=== PATIENT | male | born 1970 | race Caucasian/White ===

== ENCOUNTER → 2016-12-01 | Outpatient (CLI) | payer OTHER, MEDICAID ==
[~2016-12-01] MED LIST: ASPI81TA85 AD; COMBAER6 INH; DICY10SO PO; FAMO1TAB25 PO; LORA2CON5 PO; MAG400TA PO; MAGN400C2 PO; METH-107 PO; MIRT30TA2 PO; OMEP40CA2 PO; PRAV40TA2 PO; PROP60TA14 PO; RISP2TAB30 PO; VITA100037 PO; ZONI100C2 PO
--- NOTE | 2016-12-02 02:50 | REP ---
Clinical: Trauma. Technique: Frontal view of the chest with multiple views of the right hemithorax. Findings: Frontal view of the chest demonstrates no acute cardiopulmonary process. Multiple views of the right hemithorax demonstrates no obvious acute rib fracture or pathology. Impression: Normal right rib series Signed by Adair Lopez MD 12/02/2016 02:41 A
== END ==
LOC: M WUC 16:42
PROVIDERS: ATTEND Physician Assistant Medical
DX: R07.81 Pleurodynia (principal); W19.XXXA Unspecified fall, initial encounter; X58.XXXA Exposure to other specified factors, initial encounter; Y93.9 Activity, unspecified; Y92.9 Unspecified place or not applicable; Y99.8 Other external cause status

== ENCOUNTER → 2017-01-08 | Outpatient (CLI) | payer OTHER ==
--- NOTE | 2017-01-08 14:45 | REP ---
MR BRAIN WITHOUT AND WITH CONTRAST: HISTORY: Altered sense of smell. CONTRAST: ProHance 14 mL. COMPARISON: 12/07/2013 A small area of increased signal intensity on T2-weighted images is present in the left cerebellum. This represents an old lacunar infarction. There is no intraparenchymal hemorrhage, acute infarct, mass, or midline shift. There is no abnormal enhancement. The ventricular system is normal in appearance. There is no extracerebral collection. Mucosal thickening is present in the ethmoid and maxillary sinuses. IMPRESSION: Old left cerebellar lacunar infarction. Signed by Lopez Cavazos MD 01/08/2017 02:49 P
== END ==
LOC: M RAD 12:16
PROVIDERS: ATTEND Physician Assistant Medical
DX: R43.9 Unspecified disturbances of smell and taste (principal); I63.9 Cerebral infarction, unspecified
CPT/HCPCS: 70553; A9576

== ENCOUNTER → 2017-01-26 | Outpatient (REF) ==
--- NOTE | 2017-01-26 11:50 | REP ---
Clinical: Pain and disability. Technique: AP, lateral, coned-down views of the lumbosacral spine. Findings: Alignment and lordosis maintained. No acute fracture / compression injury or subluxation. Advanced degenerative disc osteophyte complex at the L5-S1 level includes endplate sclerosis, anterior osteophytes, and disc space narrowing. Moderate degenerative disc disease at the L3-4 and L4-5 levels includes endplate sclerosis with early anterior spurring and minimal disc space narrowing. Impression: Multilevel degenerative changes most pronounced at the L5-S1 level. Signed by Adair Lopez MD 01/26/2017 11:42 A
== END ==
LOC: M SMT 10:45
PROVIDERS: ATTEND Internal Medicine
DX: M51.36 Other intervertebral disc degeneration, lumbar region (principal)

== ENCOUNTER → 2017-01-29 | Outpatient (CLI) | payer OTHER ==
--- NOTE | 2017-01-29 11:38 | REP ---
ULTRASOUND, LEFT BREAST: The patient reports a history of palpable abnormality in the left retroareolar region. There is hypoechoic tissue in this region, which is ill-defined measuring 2.7 x 0.9 x 2.0 cm. This is asymmetric when compared to the right retroareolar region. Findings are most consistent with asymmetric gynecomastia. Clinical correlation and followup is recommended. These findings should not deter biopsy if there is a clinically suspicious palpable mass present. Signed by Dequan Dia MD 01/29/2017 01:26 P
== END ==
LOC: M RAD 10:24
PROVIDERS: ATTEND Physician Assistant Medical
DX: R92.8 Other abnormal and inconclusive findings on diagnostic imaging of breast (principal)

== ENCOUNTER → 2017-03-23 | Outpatient (REF) | payer OTHER ==
[2017-03-23 16:23] LABS: ALBUMIN 3.7 GM/DL (3.2-5.2); ALBUMIN/GLOBULIN RATIO 1.23 (1.00-1.93); ALKALINE PHOSPHATASE 75 U/L (45-117); ALT/SGPT 16 U/L (12-78); ANION GAP 7 MEQ/L (8-16); AST/SGOT 8 U/L (15-37); BILIRUBIN,TOTAL 0.4 MG/DL (0.2-1.0); BLOOD UREA NITROGEN 7 MG/DL (7-18); CALCIUM LEVEL 8.4 MG/DL (8.5-10.1); CARBON DIOXIDE LEVEL 28 MEQ/L (21-32); CHLORIDE LEVEL 102 MEQ/L (98-107); CHOLESTEROL LEVEL 221 MG/DL (<200); CREATININE FOR GFR 1.15 MG/DL (0.70-1.30); GLOMERULAR FILTRATION RATE > 60.0 (>60); GLUCOSE, FASTING 88 MG/DL (70-105); MAGNESIUM LEVEL 2.3 MG/DL (1.8-2.4); POTASSIUM SERUM 4.4 MEQ/L (3.5-5.1); SODIUM LEVEL 137 MEQ/L (136-145); TOTAL PROTEIN 6.7 GM/DL (6.4-8.2); TRIGLYCERIDES LEVEL 171 MG/DL (<150)
[2017-03-23 16:26] LABS: BASO # 0.1 K/mm3 (0.0-0.2); BASO % 1.2 % (0.0-1.0); EOS # 0.3 K/mm3 (0.0-0.50); EOS % 3.1 % (0.0-3.0); LARGE UNSTAINED CELL # 0.1 K/mm3 (0.0-0.4); LARGE UNSTAINED CELL % 1.5 % (0.0-4.0); LYMPH # 2.8 K/mm3 (1.5-4.5); LYMPH % 32.9 % (24.0-44.0); MEAN CORPUSCULAR HEMOGLOBIN 30.4 pg (27.0-33.0); MEAN CORPUSCULAR HGB CONC 32.7 g/dl (32.0-36.5); MEAN CORPUSCULAR VOLUME 92.8 fl (80.0-96.0); MONO # 0.5 K/mm3 (0.0-0.8); MONO % 5.8 % (0.0-5.0); NEUTROPHILS # 4.6 K/mm3 (1.8-7.7); NEUTROPHILS % 55.6 % (36.0-66.0); PLATELET COUNT, AUTOMATED 217 k/mm3 (150-450); RED CELL DISTRIBUTION WIDTH 13.4 % (11.5-14.5); WHITE BLOOD COUNT 8.3 K/mm3 (4.0-10.0)
== END ==
LOC: M SFHCPLAZ 12:52
PROVIDERS: ATTEND Physician Assistant Medical
DX: K21.9 Gastro-esophageal reflux disease without esophagitis (principal); E78.5 Hyperlipidemia, unspecified; F20.0 Paranoid schizophrenia

== ENCOUNTER 2017-05-08 21:39 | Inpatient (IN) | payer OTHER ==
[~2017-05-08] VITALS: Ht 177.8 cm; Wt 63.2 kg
[~2017-05-08 21:39] MED LIST changes: +FAMOTIDINE 20 MG TAB PO SCH; +GABAPENTIN 400 MG CAP PO SCH; -METH-107 PO; +METH1TAB40 PO; -RISP2TAB30 PO; +RISP2TAB32 PO; -VITA100037 PO; +VITA100067 PO
[2017-05-08] MEDS ORDERED: SERO200T PO (22:06)
[2017-05-08] MEDS ORDERED: GABA-283 PO (22:06)
[2017-05-08] MEDS ORDERED: MAALOX 30 ML SUSP *UDC PO PRN (23:00)
[2017-05-08] MEDS ORDERED: MOM 30ML SUSPENSION UDC PO PRN (23:00)
[2017-05-08] MEDS ORDERED: QUEtiapine FUMARATE 100 MG TAB PO ONE (23:00)
[2017-05-08 23:01] LABS: MEAN CORPUSCULAR HEMOGLOBIN 31.1 pg (27.0-33.0); MEAN CORPUSCULAR HGB CONC 34.2 g/dl (32.0-36.5); RED CELL DISTRIBUTION WIDTH 13.2 % (11.5-14.5)
[2017-05-08] MEDS ORDERED: QUEtiapine FUMARATE 100 MG TAB PO PRN (23:15)
[2017-05-08 23:30] LABS: ALBUMIN 3.9 GM/DL (3.2-5.2); ALBUMIN/GLOBULIN RATIO 1.15 (1.00-1.93); ALKALINE PHOSPHATASE 84 U/L (45-117); ALT/SGPT 14 U/L (12-78); ANION GAP 6 MEQ/L (8-16); AST/SGOT 11 U/L (15-37); BILIRUBIN,DIRECT < 0.1 MG/DL (0.0-0.2); BILIRUBIN,TOTAL 0.3 MG/DL (0.2-1.0); BLOOD UREA NITROGEN 10 MG/DL (7-18); CALCIUM LEVEL 8.9 MG/DL (8.5-10.1); CARBON DIOXIDE LEVEL 27 MEQ/L (21-32); CHLORIDE LEVEL 102 MEQ/L (98-107); CREATININE FOR GFR 1.15 MG/DL (0.70-1.30); GLOMERULAR FILTRATION RATE > 60.0 (>60); GLUCOSE, FASTING 91 MG/DL (70-105); POTASSIUM SERUM 3.7 MEQ/L (3.5-5.1); SODIUM LEVEL 135 MEQ/L (136-145); TOTAL PROTEIN 7.3 GM/DL (6.4-8.2)
[2017-05-08 23:37] LABS: METHADONE URINE NEGATIVE (NEGATIVE)
[2017-05-09] MEDS ORDERED: GABA-279 PO (00:07)
[2017-05-09] MEDS ORDERED: LORA1TAB12 PO (00:07)
[2017-05-09] MEDS ORDERED: MIRT30TA3 PO (00:07)
[2017-05-09] MEDS ORDERED: FAMO1TAB11 PO (00:07)
[2017-05-09] MEDS ORDERED: DICY20TA PO (00:07)
[2017-05-09] MEDS ORDERED: LISI-542 PO (00:07)
[2017-05-09 01:02] VITALS: BP 138/90
[2017-05-09] MEDS: PROPRANOLOL 20 MG TAB PO SCH ×3 (01:57→21:17)
[2017-05-09] MEDS ORDERED: PRAVASTATIN 10 MG TAB PO SCH ×2 (09:00→21:00)
[2017-05-09] MEDS ORDERED: GABAPENTIN 400 MG CAP PO ONE (09:00)
[2017-05-09] MEDS: FAMOTIDINE 20 MG TAB PO SCH ×2 (09:00→21:17)
[2017-05-09] MEDS ORDERED: OMEPRAZOLE 20 MG CAP PO SCH (09:00)
[2017-05-09] MEDS ORDERED: OMEPRAZOLE 20 MG CAP PO ONE (09:00)
[2017-05-09] MEDS ORDERED: FAMOTIDINE 20 MG TAB PO ONE (09:00)
[2017-05-09] MEDS ORDERED: LISINOPRIL 5 MG TAB PO SCH (09:00)
[2017-05-09] MEDS ORDERED: PROPRANOLOL 20 MG TAB PO ONE (09:00)
[2017-05-09] MEDS: OMEPRAZOLE 20 MG CAP PO SCH ×2 (09:59→21:18)
[2017-05-09] MEDS: GABAPENTIN 100 MG CAP PO SCH ×2 (09:59→21:18)
[2017-05-09] MEDS: COMBIVENT RESPIMAT 100-20MCG INHALER 4GM INH SCH ×4 (10:00→21:16)
[2017-05-09] MEDS: MAGNESIUM OXIDE 400 MG TAB (MAG-OX) PO SCH (10:00)
[2017-05-09] MEDS: VITAMIN D 1,000 INTERNATIONAL UNITS TABLET PO SCH (10:02)
[2017-05-09] MEDS ORDERED: OLANZapine 5 MG TAB PO ONE (10:30)
[2017-05-09] MEDS: DICYCLOMINE 10 MG CAP PO SCH ×3 (11:49→23:31)
--- NOTE | 2017-05-09 12:03 | MHHPE ---
DATE OF ADMISSION: 05/08/2017 LEGAL STATUS ON ADMISSION: 9.39 legal status. CHIEF COMPLAINT: "I believe my stepfather is trying to poison me." HISTORY OF PRESENT ILLNESS: 47-year-old male with a history of schizoaffective disorder, admitted to our unit in a 9.39 legal status. According to the chart, the patient came to the emergency department requesting lab work because he believes that he has been poisoned by his stepfather. The patient has been diagnosed of schizoaffective disorder. He was in our unit in June 2016. At that time, he was admitted after he barricaded himself in a metal [employer] business and he had a loaded gun. The patient was on Risperdal and Seroquel. The patient says that she had to stop Risperdal because, "I get a lump in my chest." I guess what he means is that he had high levels or prolactin and developed gynecomastia. There is no record of these laboratories in our system. During the interview today, the patient continues feeling paranoid. The patient says that he feels safe in the unit; however, he has a tendency to mistrust. He is talking about, "There is a lot going on, Doctor." "It is not in my head." The patient talks about moving from living with his sister to his parents because of mistrust. Also, talking about feeling that his has done something to him that he ended up having seizures. The patient also is open to the idea that he needs to have his medications adjusted. The patient makes the connection that medication helps his paranoia. He is concerned about psychiatric medications and he says that, "I was taking too much Risperdal." He is oriented times four. The patient denies mood swings, although he has been diagnosed of schizoaffective disorder, but the documentation in the chart reflects that he has a tendency to paranoia and mistrust. The patient states that he uses marijuana every once in a while. He says that he used very little dose three weeks ago but has not done so since then. PAST MEDICAL HISTORY: The patient has been diagnosed of seizures, migraine headaches, status post CVA in 2008, irritable bowel syndrome. PAST PSYCHIATRIC HISTORY: As above. The patient was diagnosed of schizoaffective disorder during this admission to our unit. He was admitted at [facility] when he was 12 years of age after a severe overdose on aspirin. FAMILY HISTORY: The patient reports that an aunt made a suicide attempt. No other psychiatric family history. SUBSTANCE ABUSE HISTORY: As above. The patient reports using low dosage of marijuana intermittently. The last time he used was three weeks ago. PSYCHIATRIC REVIEW OF SYSTEMS: Depression and other mood disorder: The patient denies depression. Reports insomnia. Denies anhedonia or hopelessness. Denies low energy. Denies psychomotor retardation or suicidal thoughts. No flight of ideas, pressured speech, grandiosity, distractibility, or increased activity. Substance abuse disorder: The patient uses marijuana intermittently. Anxiety disorder: The patient reports high anxiety because of his paranoia. No panic or agoraphobia. No obsessive compulsive disorder (OCD) symptoms. Denies washing hands repeatedly. Denies checking things over and over. Somatization disorder: Screening for pain, conversion, gastrointestinal or sexual symptoms is negative. Eating disorder: Screening for dieting, use of laxatives, eating in binges is negative. Dementia or cognitive disorder: Screening for short and high man memory, orientation and general information is negative for cognitive disorder. Psychotic disorder: The patient is paranoid, delusional with no hallucinations or looseness of associations. PHYSICAL EXAMINATION: As per physician's legal administrative assistant. LABS AT ADMISSION: CBC is unremarkable. CMP within normal limits except sodium of 135. Urine drug screen (UDS) was negative. Blood alcohol level is negative. MENTAL STATUS EXAMINATION: The patient is dressed in [facility]. Patient is cooperative. Speech is clear and coherent. Has fair eye contact. Mood is anxious. Affect is restricted. Patient is oriented to time, place, person and situation. Attention and concentration are fair. Instant recall, recent and remote memory are fair. Patient denies auditory or visual hallucinations. Patient has paranoid delusions. Denies suicidal or homicidal ideation. Judgment and insight are poor. DIAGNOSES: [place] I: Schizoaffective disorder, marijuana abuse. [place] II: Deferred. [place] III: Seizure disorder, migraine headaches, irritable bowel syndrome, status post CVA. INITIAL TREATMENT PLAN: Patient was admitted on legal status. Complete history was obtained. With his permission, family will be contacted and database will be expanded. His medication regime will be reviewed and changed accordingly. He will be provided with protected environment. He will be treated with individual, group and milieu therapy. He will also receive supportive psychoeducation. Discharge planning will commence immediately. Length of stay will be between 7 and 10 days. Outpatient followup will be strongly recommended. Treatment plan will focus initially on altered thoughts, anxiety, and substance abuse.
[2017-05-09 18:32] VITALS: BP 108/68
[2017-05-09] MEDS: QUEtiapine FUMARATE 200 MG TAB PO SCH ×2 (21:18→23:28)
[2017-05-09] MEDS: OLANZapine 10 MG TAB PO SCH (21:18)
[2017-05-09] MEDS: PRAVASTATIN 20 MG TAB PO SCH (21:18)
[2017-05-09] MEDS: ZONISAMIDE 100 MG CAP (ZONEGRAN) PO SCH (21:19)
--- NOTE | 2017-05-09 22:11 | HPE ---
DATE OF ADMISSION: 05/08/2017 HISTORY OF PRESENT ILLNESS: Please refer to psychiatric history and evaluation for further details on this admission. This examination and history is intended for medical issues, which may need treatment, followup or consultation on this 46-year-old male. PRIMARY CARE PROVIDER: LEELA Park at [facility]. ALLERGIES: CODEINE, ACETAMINOPHEN. SOCIAL HISTORY: He lives in [place]. He is . He smokes one pack of cigarettes per day. EtOH none for greater than 8 years. Recreational drug use: Occasional marijuana. PAST MEDICAL HISTORY: Seizure disorder. Follows with [facility]. EEG in November 2011 at [facility] with no epileptiform activity. Chronic neck pain, follows with [facility]. Migraines, follows with [facility], none currently. History of gastroesophageal reflux disease (GERD)/hiatal hernia, irritable bowel syndrome, anxiety, depression, hypertension, hyperlipidemia, chronic obstructive pulmonary disease (COPD). He had a CVA in 2008 with no resultant weaknesses. PAST SURGICAL HISTORY: EGD in August 2013 with esophagitis, chronic inflammation, Dr. Calderon. Colonoscopy in August 2013 with polypectomy times eight, hyperplastic, per Dr. Calderon. Colonoscopy in November 2013 with polyp times one. LABORATORY STUDIES: WBC 9.0, hemoglobin 14.2, hematocrit 41.2, platelets 211. Sodium 135, potassium 3.7, chloride 102, CO2 of 27, BUN and creatinine 10 and 1.1. Urine for toxicology was negative. FAMILY HISTORY: Mother is alive with diabetes. Father alive with diabetes. REVIEW OF SYSTEMS: Ten systems review was done. He had complaints, was feeling well. HOME MEDICATIONS: - Combivent Respimat one inhalation four times a day - Pepcid 40 mg by mouth twice a day - gabapentin 100 mg by mouth twice a day - Lisinopril 5 mg by mouth daily - lorazepam 1 mg by mouth as needed migraine - methocarbamol 500 mg every 6 hours as needed for muscle spasm - mirtazapine 30 mg by mouth at night - omeprazole 40 mg by mouth twice a day - Pravachol 40 mg by mouth at night - propranolol 20 mg by mouth twice a day - vitamin D 1000 units daily - zonisamide 300 mg by mouth at night - dicyclomine 40 mg by mouth every six hours as needed for irritable bowel syndrome - magnesium 400 mg by mouth daily PHYSICAL EXAMINATION: GENERAL: 47-year-old cooperative male in no acute distress. Height 70 inches, weight 63.2 kg, Body Mass Index (BMI) 20. Blood pressure 108/68, pulse 72, respirations 18, temperature 98.4. The patient is alert and oriented times three. He looks much older than his stated years. HEENT: Pupils are equal and reactive to light. Extraocular muscles intact. Sclerae clear. Conjunctivae normal. No facial asymmetry. Pharynx, gums and tongue pink and moist. Tongue is midline. NECK: Supple without lymphadenopathy, thyromegaly or goiter. Carotids 2+ without bruit. CHEST: Clear to auscultation without wheeze or retraction. HEART: Regular. ABDOMEN: Benign. Bowel sounds positive. GENITOURINARY/RECTAL: Not done. EXTREMITIES: Equal strength. Full range of motion. No cyanosis, clubbing or edema. Peripheral pulses equal and palpable bilaterally. SKIN: Warm and dry. NEUROLOGIC: Cranial nerves III through XII grossly intact. EKG on file. Sinus rhythm. IMPRESSION/PLAN: 1. Psychiatric plan per psychiatry. 2. Nicotine dependence, patch available. 3. Chronic medical illnesses to include gastroesophageal reflux disease (GERD), hiatal hernia, continue medications. Hypercholesterolemia, continue Pravachol and diet. Hypertension, continue propranolol. Seizure disorder, continue outpatient followup with [facility], continue medications. Irritable bowel syndrome, continue Bentyl. Chronic neck pain, continue medication and followup with [facility]. Chronic obstructive pulmonary disease (COPD), clinically stable. Followup with primary care provider for chronic medical illnesses as an outpatient. No acute medical illnesses.
[2017-05-10] MEDS: DICYCLOMINE 10 MG CAP PO SCH ×4 (05:54→23:01)
[2017-05-10 06:44] VITALS: BP 96/52
[2017-05-10] MEDS: PROPRANOLOL 20 MG TAB PO SCH (09:00)
[2017-05-10] MEDS: COMBIVENT RESPIMAT 100-20MCG INHALER 4GM INH SCH ×4 (09:38→20:46)
[2017-05-10] MEDS: VITAMIN D 1,000 INTERNATIONAL UNITS TABLET PO SCH (09:39)
[2017-05-10] MEDS: MAGNESIUM OXIDE 400 MG TAB (MAG-OX) PO SCH (09:39)
[2017-05-10] MEDS: OMEPRAZOLE 20 MG CAP PO SCH ×2 (09:40→20:47)
[2017-05-10] MEDS: FAMOTIDINE 20 MG TAB PO SCH ×2 (09:40→20:46)
[2017-05-10] MEDS: GABAPENTIN 100 MG CAP PO SCH ×2 (09:40→20:46)
[2017-05-10] MEDS: PROPRANOLOL 10 MG TAB PO SCH ×2 (10:25→20:48)
[2017-05-10] MEDS ORDERED: LISINOPRIL 5 MG TAB PO SCH (14:00)
[2017-05-10 18:05] VITALS: BP 102/74
[2017-05-10] MEDS: OLANZapine 10 MG TAB PO SCH (20:46)
[2017-05-10] MEDS: PRAVASTATIN 20 MG TAB PO SCH (20:46)
[2017-05-10] MEDS: IBUPROFEN 400 MG TAB PO PRN (23:02)
--- NOTE | 2017-05-10 23:02 | IPN ---
DATE: 05/10/2017 47-year-old male with history of schizoaffective disorder admitted with paranoid delusions. The patient was very afraid and was thinking that he was poisoned by his stepfather. SUBJECTIVE: "I could sleep a little better last night, but I wake up frequently". OBJECTIVE: No major changes from yesterday at admission. The patient denies side effects from the medication. The patient is cooperative during the interview. Has low insight. Continues to be paranoid. Is compliant with the medication. MENTAL STATUS EXAM: The patient dressed in [facility]. The patient has poor eye contact. Speech is poor. Mood is anxious. Affect is restricted. The patient continues to have paranoid delusions. No evidence of hallucinations. Memory, attention and concentration are fair. The patient is able to contract for safety during his hospitalization. Insight and judgment is poor. ASSESSMENT: 1. Delusions/paranoia. 2. Schizoaffective disorder. PLAN: 1. Continue with Seroquel 200 mg by mouth at bedtime. 2. Continue with Zyprexa 10 mg by mouth at bedtime. 3. Continue with gabapentin 100 mg by mouth twice a day. 4. Continue close observation. 5. Continue medication management, individual and group therapy.
[2017-05-10] MEDS: ZONISAMIDE 100 MG CAP (ZONEGRAN) PO SCH (23:04)
[2017-05-11] MEDS: DICYCLOMINE 10 MG CAP PO SCH ×4 (06:23→23:50)
[2017-05-11 06:35] VITALS: BP 96/53
[2017-05-11] MEDS: COMBIVENT RESPIMAT 100-20MCG INHALER 4GM INH SCH ×4 (08:04→20:31)
[2017-05-11] MEDS: FAMOTIDINE 20 MG TAB PO SCH ×2 (08:05→20:31)
[2017-05-11] MEDS: GABAPENTIN 100 MG CAP PO SCH ×2 (08:05→20:31)
[2017-05-11] MEDS: OMEPRAZOLE 20 MG CAP PO SCH ×2 (08:05→20:31)
[2017-05-11] MEDS: VITAMIN D 1,000 INTERNATIONAL UNITS TABLET PO SCH (08:06)
[2017-05-11] MEDS: MAGNESIUM OXIDE 400 MG TAB (MAG-OX) PO SCH (08:06)
[2017-05-11 09:00] VITALS: BP 102/70
[2017-05-11] MEDS: PROPRANOLOL 10 MG TAB PO SCH (09:00)
[2017-05-11 10:39] VITALS: BP 101/61
[2017-05-11 18:00] VITALS: BP 112/64
[2017-05-11] MEDS: OLANZapine 10 MG TAB PO SCH (20:31)
[2017-05-11] MEDS: PRAVASTATIN 20 MG TAB PO SCH (20:31)
[2017-05-11] MEDS: IBUPROFEN 400 MG TAB PO PRN (20:33)
[2017-05-11] MEDS: ZONISAMIDE 100 MG CAP (ZONEGRAN) PO SCH (23:50)
[2017-05-11] MEDS: QUEtiapine FUMARATE 200 MG TAB PO SCH (23:50)
[2017-05-12] MEDS: DICYCLOMINE 10 MG CAP PO SCH ×4 (06:07→23:01)
[2017-05-12 06:58] VITALS: BP 106/60
[2017-05-12] MEDS: OMEPRAZOLE 20 MG CAP PO SCH ×2 (08:52→21:02)
[2017-05-12] MEDS: GABAPENTIN 100 MG CAP PO SCH ×2 (08:52→21:03)
[2017-05-12] MEDS: VITAMIN D 1,000 INTERNATIONAL UNITS TABLET PO SCH (08:53)
[2017-05-12] MEDS: MAGNESIUM OXIDE 400 MG TAB (MAG-OX) PO SCH (08:53)
[2017-05-12] MEDS: COMBIVENT RESPIMAT 100-20MCG INHALER 4GM INH SCH ×4 (08:53→21:02)
[2017-05-12] MEDS: FAMOTIDINE 20 MG TAB PO SCH ×2 (08:53→21:03)
--- NOTE | 2017-05-12 09:15 | IPN ---
DATE OF SERVICE: 05/11/2017 47-year-old male with history of schizoaffective disorder, admitted with paranoid delusions. The patient was very afraid and thinking that he was poisoned by his stepfather. SUBJECTIVE: "I still have trouble going to sleep and staying asleep." OBJECTIVE: Patient is somewhat less paranoid, but still has problems with insomnia. The patient is tolerating well the medication. He is cooperative during the interview. Continues to have low insight into his psychiatric problems, but he is compliant with the medication. MENTAL STATUS EXAMINATION: Patient is dressed in [facility]. Patient is cooperative, has poor eye contact. Speech is poor. Mood is anxious. Affect is restricted. Continues to have paranoid delusions. No hallucinations. Memory, attention and concentration are fair. Patient is able to contract for safety during his hospitalization. Insight and judgment is poor. ASSESSMENT: 1. Delusions/paranoia. 2. Schizoaffective disorder. PLAN: 1. Continue Seroquel 200 mg by mouth at bedtime. 2. Continue Zyprexa 10 mg by mouth at bedtime. 3. Continue gabapentin 100 mg by mouth twice a day. 4. Continue close observation. 5. Continue medication management, individual and group therapy. 6. The patient's blood pressure runs low so we will hold his blood pressure medication.
[2017-05-12 12:00] VITALS: BP 140/86
[2017-05-12 18:00] VITALS: BP 132/78
[2017-05-12] MEDS: PRAVASTATIN 20 MG TAB PO SCH (21:02)
[2017-05-12] MEDS: ZONISAMIDE 100 MG CAP (ZONEGRAN) PO SCH (21:03)
--- NOTE | 2017-05-12 21:49 | IPN ---
DATE: 05/12/2017 47-year-old male with a history of schizoaffective disorder admitted with paranoid delusions. The patient was very afraid and thinking that he has been poisoned by his stepfather. SUBJECTIVE: "I am feeling a little better." OBJECTIVE: The patient continues improving slowly. His paranoid delusions have been decreasing. The patient is interacting a little better with other patients and staff. His affect is a little brighter. He is denying side effects from the medication. MENTAL STATUS EXAMINATION: The patient is dressed in [facility]. The patient is calm and cooperative during the interview. The patient has fair eye contact. Speech is normal in rate, volume and articulation. The patient is coherent and spontaneous. The patient's mood is anxious. Affect is restricted. The patient continues with paranoid delusions. No hallucinations. Memory, attention and concentration are fair. The patient is able to contract for safety during the interview. Insight and judgment limited. ASSESSMENT: 1. Delusions/paranoia. 2. Schizoaffective disorder. PLAN: 1. Continue with Seroquel 200 mg by mouth at night. 2. Continue with Zyprexa 10 mg by mouth at night. 3. Continue with Neurontin 100 mg by mouth twice a day. 4. Continue medication management, individual and group therapy.
[2017-05-12] MEDS: OLANZapine 10 MG TAB PO SCH (23:00)
[2017-05-12] MEDS: QUEtiapine FUMARATE 200 MG TAB PO SCH (23:00)
[2017-05-13] MEDS: DICYCLOMINE 10 MG CAP PO SCH ×4 (06:15→22:59)
[2017-05-13 06:27] VITALS: BP 119/75
[2017-05-13] MEDS: OMEPRAZOLE 20 MG CAP PO SCH ×2 (08:13→20:36)
[2017-05-13] MEDS: MAGNESIUM OXIDE 400 MG TAB (MAG-OX) PO SCH (08:13)
[2017-05-13] MEDS: COMBIVENT RESPIMAT 100-20MCG INHALER 4GM INH SCH ×4 (08:13→20:36)
[2017-05-13] MEDS: GABAPENTIN 100 MG CAP PO SCH ×2 (08:14→20:36)
[2017-05-13] MEDS: VITAMIN D 1,000 INTERNATIONAL UNITS TABLET PO SCH (08:14)
[2017-05-13] MEDS: FAMOTIDINE 20 MG TAB PO SCH ×2 (08:14→20:36)
[2017-05-13] MEDS ORDERED: METHOCARBAMOL 500 MG TAB PO PRN (09:15)
--- NOTE | 2017-05-13 15:40 | IPN ---
DATE: 05/13/2017 47-year-old male with history of schizoaffective disorder admitted with paranoid delusion. Patient was afraid that he was going to be poisoned by his father. SUBJECTIVE: "I am feeling much better." OBJECTIVE: Patient continues to improve. He stated that his paranoid delusions are down to a minimum. He is interacting well with other patients and staff. His affect is bright and he is able to smile. He denies side effects from the medication. MENTAL STATUS EXAMINATION: Patient is dressed in [facility]. Patient is calm and cooperative, has good eye contact. Speech is normal in rate, volume, and articulation. Patient is euthymic. Affect is congruent with mood. His paranoid delusions have significantly improved. Denies hallucinations. Memory, attention, and concentration are fair. Patient is able to contract for safety. Insight and judgment is improved. ASSESSMENT: 1. Delusions/paranoia. 2. Schizoaffective disorder. PLAN: 1. Continue with Zyprexa 10 by mouth nightly. 2. Continue Seroquel 200 mg by mouth nightly. 3. Continue Neurontin 100 mg by mouth twice a day. 4. Continue medication management, individual and group therapy. If patient continues improving, will discharge tomorrow in morning after we contact his parents.
[2017-05-13 18:13] VITALS: BP 108/58
[2017-05-13] MEDS: PRAVASTATIN 20 MG TAB PO SCH (20:36)
[2017-05-13] MEDS: ZONISAMIDE 100 MG CAP (ZONEGRAN) PO SCH (20:36)
[2017-05-13] MEDS: OLANZapine 10 MG TAB PO SCH (22:58)
[2017-05-13] MEDS: QUEtiapine FUMARATE 200 MG TAB PO SCH (22:58)
[2017-05-14] MEDS: DICYCLOMINE 10 MG CAP PO SCH (06:02)
[2017-05-14 06:21] VITALS: BP 119/70
[2017-05-14] MEDS ORDERED: OLAN10TA2 PO (08:03)
[2017-05-14] MEDS: VITAMIN D 1,000 INTERNATIONAL UNITS TABLET PO SCH (08:22)
[2017-05-14] MEDS: GABAPENTIN 100 MG CAP PO SCH (08:22)
[2017-05-14] MEDS: MAGNESIUM OXIDE 400 MG TAB (MAG-OX) PO SCH (08:22)
[2017-05-14] MEDS: COMBIVENT RESPIMAT 100-20MCG INHALER 4GM INH SCH (08:22)
[2017-05-14] MEDS: OMEPRAZOLE 20 MG CAP PO SCH (08:22)
[2017-05-14] MEDS: FAMOTIDINE 20 MG TAB PO SCH (08:23)
--- NOTE | 2017-05-15 10:20 | MHDS ---
DATE OF ADMISSION: 05/08/2017 DATE OF DISCHARGE: 05/14/2017 LEGAL STATUS AT ADMISSION: 9.39 legal status. HISTORY OF PRESENT ILLNESS: A 47-year-old male with a history of schizoaffective disorder, admitted to our unit in a 9.39 legal status. According to the chart, the patient came to the emergency department (ED) requesting laboratory work because he believes he has been poisoned by his stepfather. The patient has been diagnosed of schizoaffective disorder. He was in our unit in June 2016. At that time, he was admitted after he barricaded himself in a [employer] business, and he had a loaded gun. At that time, he was on Risperdal and Seroquel. The patient stated that had to stop Risperdal because of "a lump on my chest." Probably, he had an increase of prolactin and developed gynecomastia secondary to antipsychotics. There is no record of these laboratories in our system. During the interview in our unit, the patient continues feeling paranoid, although he is feeling safer in the unit. He has a tendency to mistrust. He is talking about, "A lot of things going on, this is not in my head." The patient was talking about moving back and forth from his sister to his parents because of this mistrust. Also, that his did something to him and ended up having seizures. He was oriented times four. Denied mood swings. His diagnosis was schizoaffective disorder, but the documentation in the chart shows that he mostly presents with paranoia and not a lot of mood swings. The patient also reports using marijuana every once in a while. LABORATORIES AT ADMISSION: CBC is unremarkable. CMP within normal limits except sodium of 135. His urine drug screen was negative. Blood alcohol level was negative. HOSPITAL COURSE: After the first interview, the patient was restarted on Seroquel 200 mg by mouth nightly and Zyprexa 10 mg by mouth nightly. The patient did react well to this medication. After 48 hours of treatment, his paranoid delusions were significantly decreased. The patient was motivated for treatment. He was more insightful. The patient started to participate in the psychotherapeutic activities and interact better with other patients and staff. At the moment of discharge, the patient is significantly improved. The patient is denying auditory or visual hallucinations or paranoid delusions. His mood is euthymic. Denies suicidal or homicidal ideation. Denies side effect from medication. He is motivated for treatment and is willing to followup recommendations. So, he is discharged on 05/14/2017 on a stable condition. MENTAL STATUS EXAMINATION AT DISCHARGE: The patient is dressed in [facility]. The patient is calm and cooperative. Speech is clear and coherent with normal rate and is spontaneous. The patient has fair eye contact. Mood is euthymic. Affect is appropriate and congruent with mood. The patient is oriented to time, place, person, and situation. Maintains attention and concentration correctly. Instant recall, recent and remote memory are intact. Thought processes are coherent, logical, and goal-directed. The patient does not have auditory or visual hallucinations. The patient does not have paranoid, persecutory, somatic, grandiose, or denominational delusions. The patient denies suicidal or homicidal ideation. Judgment and insight are fair. DISCHARGE DIAGNOSES: [place] I: Schizoaffective disorder, marijuana abuse. [place] II: Deferred. [place] III: Seizure disorder, migraine headaches, irritable bowel syndrome, status post cerebrovascular accident (CVA). CONDITION AT DISCHARGE: Stable. Denies auditory or visual hallucinations. Denies delusions. Denies suicidal or homicidal ideation. INSTRUCTIONS TO THE PATIENT: The patient is to continue taking his medications as prescribed and followup appointments. He is advised to maintain absolute sobriety from drugs and alcohol. The patient has scheduled appointment for medication management, individual psychotherapy, and primary care provider. DISCHARGE MEDICATIONS: - Zyprexa 10 mg by mouth nightly - Seroquel 200 mg by mouth nightly
== END 2017-05-14 11:25 | disposition home or self-care (01) | DRG 750 ==
LOC: M ED 21:39 → M ED INP 22:59 → M PSY 05-09 00:45
PROVIDERS: ADMIT Psychiatry & Neurology Psychiatry; ATTEND Psychiatry & Neurology Psychiatry
DX: F25.9 Schizoaffective disorder, unspecified (principal); J44.9 Chronic obstructive pulmonary disease, unspecified; I10 Essential (primary) hypertension; G40.909 Epilepsy, unspecified, not intractable, without status epilepticus; F12.10 Cannabis abuse, uncomplicated; Z88.5 Allergy status to narcotic agent; Z88.6 Allergy status to analgesic agent; F17.210 Nicotine dependence, cigarettes, uncomplicated; G43.909 Migraine, unspecified, not intractable, without status migrainosus; K21.9 Gastro-esophageal reflux disease without esophagitis; E78.5 Hyperlipidemia, unspecified; Z86.73 Personal history of transient ischemic attack (TIA), and cerebral infarction without residual deficits; K58.9 Irritable bowel syndrome, unspecified; Z83.3 Family history of diabetes mellitus; Z79.899 Other long term (current) drug therapy; K44.9 Diaphragmatic hernia without obstruction or gangrene; E78.00 Pure hypercholesterolemia, unspecified; M54.2 Cervicalgia

== ENCOUNTER → 2018-07-28 | Outpatient (REF) | payer OTHER ==
[2018-07-28 19:01] LABS: ESTIMATED AVERAGE GLUCOSE 105 MG/DL (60-110); HEMOGLOBIN A1c 5.3 %
[2018-07-28 19:03] LABS: ALBUMIN 3.9 GM/DL (3.2-5.2); ALBUMIN/GLOBULIN RATIO 1.08 (1.00-1.93); ALKALINE PHOSPHATASE 73 U/L (45-117); ALT/SGPT 19 U/L (12-78); ANION GAP 8 MEQ/L (8-16); AST/SGOT 10 U/L (7-37); BILIRUBIN,TOTAL 0.3 MG/DL (0.2-1.0); BLOOD UREA NITROGEN 7 MG/DL (7-18); CALCIUM LEVEL 8.7 MG/DL (8.5-10.1); CARBON DIOXIDE LEVEL 24 MEQ/L (21-32); CHLORIDE LEVEL 106 MEQ/L (98-107); CPK CREATINE PHOSPHOKINASE 53 U/L (39-308); CREATININE FOR GFR 1.08 MG/DL (0.70-1.30); FREE T4 1.15 NG/DL (0.76-1.46); GLOMERULAR FILTRATION RATE > 60.0 (>56); GLUCOSE, FASTING 96 MG/DL (70-100); POTASSIUM SERUM 4.1 MEQ/L (3.5-5.1); SODIUM LEVEL 138 MEQ/L (136-145); TOTAL PROTEIN 7.5 GM/DL (6.4-8.2)
[2018-07-28 19:11] LABS: PTH INTACT 38.2 PG/ML (18.5-88.0); TOTAL 25(OH) VITAMIN D 41.4 NG/ML (30.0-100.0)
== END ==
LOC: M SFHCPLAZ 15:46
DX: E78.5 Hyperlipidemia, unspecified (principal); E55.9 Vitamin D deficiency, unspecified; I10 Essential (primary) hypertension; F20.0 Paranoid schizophrenia

== ENCOUNTER → 2018-08-05 | Outpatient (REF) | payer OTHER | LOC: M SFHCPLAZ 18:15 | DX: J40 Bronchitis, not specified as acute or chronic (principal) ==

== ENCOUNTER → 2019-02-02 | Outpatient (REF) | payer OTHER ==
[~2019-02-02] MED LIST changes: +DICY20TA PO; +FAMO1TAB11 PO; -FAMOTIDINE 20 MG TAB PO SCH; +GABA-1171 PO; +GABA-845 PO; -GABAPENTIN 400 MG CAP PO SCH; +LISI-542 PO; +LORA1TAB12 PO; +MIRT-16 PO; -MIRT30TA2 PO; +MIRT30TA3 PO; +OLAN10TA2 PO; +SERO200T PO
[2019-02-02 20:45] LABS: BASO # 0.1 10^3/uL (0.0-0.2); BASO % 1.1 % (0.0-1.0); EOS # 0.3 10^3/uL (0.0-0.50); EOS % 2.8 % (0.0-3.0); HEMATOCRIT 43.9 % (42.0-52.0); HEMOGLOBIN 14.7 g/dl (13.5-17.5); LYMPH # 3.1 10^3/uL (1.5-4.5); LYMPH % 31.5 % (24.0-44.0); MEAN CORPUSCULAR HEMOGLOBIN 30.1 pg (27.0-33.0); MEAN CORPUSCULAR HGB CONC 33.5 g/dl (32.0-36.5); MONO # 0.6 10^3/uL (0.0-0.8); MONO % 6.4 % (0.0-5.0); NEUTROPHILS # 5.7 10^3/uL (1.8-7.7); NEUTROPHILS % 57.9 % (36.0-66.0); PLATELET COUNT, AUTOMATED 183 10^3/uL (150-450); RED BLOOD COUNT 4.88 10^6/uL (4.30-6.10); WHITE BLOOD COUNT 9.9 10^3/uL (4.0-10.0)
[2019-02-02 20:55] LABS: ALBUMIN 3.9 GM/DL (3.2-5.2); ALT/SGPT 21 U/L (12-78); BILIRUBIN,TOTAL 0.3 MG/DL (0.2-1.0); BLOOD UREA NITROGEN 16 MG/DL (7-18); CALCIUM LEVEL 8.7 MG/DL (8.5-10.1); CARBON DIOXIDE LEVEL 25 MEQ/L (21-32); CHLORIDE LEVEL 107 MEQ/L (98-107); CHOLESTEROL LEVEL 214 MG/DL (<200); CHOLESTEROL RISK RATIO 6.294 (<5); CREATININE FOR GFR 1.22 MG/DL (0.70-1.30); FREE T4 1.08 NG/DL (0.76-1.46); GLOMERULAR FILTRATION RATE > 60.0 (>56); GLUCOSE, FASTING 110 MG/DL (70-100); HDL CHOLESTEROL 34 MG/DL (>40); LDL CHOLESTEROL 120 MG/DL (<100); NON-HDL-C 180 MG/DL; POTASSIUM SERUM 4.4 MEQ/L (3.5-5.1); SODIUM LEVEL 137 MEQ/L (136-145); TOTAL PROTEIN 7.5 GM/DL (6.4-8.2); TRIGLYCERIDES LEVEL 299 MG/DL (<150)
[2019-02-02 20:57] LABS: PTH INTACT 22.5 PG/ML (18.5-88.0)
[2019-02-03 09:32] LABS: TOTAL 25(OH) VITAMIN D 62.7 NG/ML (30.0-100.0)
== END ==
LOC: M SFHCPLAZ 15:05
PROVIDERS: ATTEND Physician Assistant Medical
DX: E55.9 Vitamin D deficiency, unspecified (principal); K21.9 Gastro-esophageal reflux disease without esophagitis; E78.5 Hyperlipidemia, unspecified; F20.0 Paranoid schizophrenia

== ENCOUNTER → 2019-04-04 | Outpatient (CLI) | payer OTHER ==
[~2019-04-04] MED LIST changes: -MIRT-16 PO; +MIRT1TAB16 PO
[2019-04-04 18:23] LABS: ALBUMIN 4.1 GM/DL (3.2-5.2); BILIRUBIN,TOTAL 0.3 MG/DL (0.2-1.0); CALCIUM LEVEL 9.2 MG/DL (8.5-10.1); CHOLESTEROL RISK RATIO 5.41 (<5); CREATININE FOR GFR 1.5 MG/DL (0.70-1.30); GLOMERULAR FILTRATION RATE 52.5 (>56); MAGNESIUM LEVEL 2.1 MG/DL (1.8-2.4); POTASSIUM SERUM 4.1 MEQ/L (3.5-5.1); TOTAL PROTEIN 7.5 GM/DL (6.4-8.2)
[2019-04-04 18:30] LABS: PTH INTACT 25.7 PG/ML (18.5-88.0); TOTAL 25(OH) VITAMIN D 73.4 NG/ML (30.0-100.0)
== END ==
LOC: M LAB 16:31
PROVIDERS: ATTEND Physician Assistant Medical
DX: E78.5 Hyperlipidemia, unspecified (principal); Z12.5 Encounter for screening for malignant neoplasm of prostate; E55.9 Vitamin D deficiency, unspecified

== ENCOUNTER → 2020-01-16 | Outpatient (REF) | payer OTHER ==
[~2020-01-16] MED LIST changes: -LORA1TAB12 PO; +LORA1TAB4 PO; -OMEP40CA2 PO; +OMEP40CA97 PO; +ZONI100C17 PO; -ZONI100C2 PO
[2020-01-16 18:31] LABS: BILIRUBIN,TOTAL 0.3 MG/DL (0.2-1.0); CALCIUM LEVEL 8.7 MG/DL (8.5-10.1); CREATININE FOR GFR 1.35 MG/DL (0.70-1.30); GLOMERULAR FILTRATION RATE 59.3 (>56); MAGNESIUM LEVEL 2.2 MG/DL (1.8-2.4); POTASSIUM SERUM 4.2 MEQ/L (3.5-5.1); TOTAL PROTEIN 7.6 GM/DL (6.4-8.2)
[2020-01-16 19:45] LABS: PTH INTACT 43.1 PG/ML (18.5-88.0); TOTAL 25(OH) VITAMIN D 22.4 NG/ML (30.0-100.0)
== END ==
LOC: M SFHCPLAZ 15:28
PROVIDERS: ATTEND Physician Assistant Medical
DX: Z12.5 Encounter for screening for malignant neoplasm of prostate (principal); R19.7 Diarrhea, unspecified; E55.9 Vitamin D deficiency, unspecified

== ENCOUNTER → 2020-01-22 | Outpatient (REF) | payer OTHER | LOC: M SFHCPLAZ 17:11 | PROVIDERS: ATTEND Physician Assistant Medical | DX: R19.7 Diarrhea, unspecified (principal) ==

== ENCOUNTER → 2020-05-27 | Outpatient (CLI) | payer OTHER ==
[~2020-05-27] MED LIST changes: -ASPI81TA85 AD; +ASPI81TA86 AD
[2020-05-27 13:24] LABS: BLOOD UREA NITROGEN 13 MG/DL (7-18); CARBON DIOXIDE LEVEL 26 MEQ/L (21-32); CHLORIDE LEVEL 106 MEQ/L (98-107); CREATININE FOR GFR 1.34 MG/DL (0.70-1.30); GLOMERULAR FILTRATION RATE 59.6 (>56); GLUCOSE, FASTING 107 MG/DL (70-100); POTASSIUM SERUM 4.2 MEQ/L (3.5-5.1); SODIUM LEVEL 138 MEQ/L (136-145)
[2020-05-27 13:25] LABS: ALBUMIN 3.6 GM/DL (3.2-5.2); ALT/SGPT 24 U/L (12-78); BILIRUBIN,TOTAL 0.4 MG/DL (0.2-1.0); CALCIUM LEVEL 8.9 MG/DL (8.5-10.1); CHOLESTEROL LEVEL 262 MG/DL (<200); CHOLESTEROL RISK RATIO 10.076 (<5); HDL CHOLESTEROL 26 MG/DL (>40); NON-HDL-C 236 MG/DL; TOTAL PROTEIN 7.4 GM/DL (6.4-8.2); TRIGLYCERIDES LEVEL 507 MG/DL (<150)
== END ==
LOC: M PLALAB 12:10
PROVIDERS: ATTEND Physician Assistant Medical
DX: R19.7 Diarrhea, unspecified (principal); E78.5 Hyperlipidemia, unspecified

== ENCOUNTER → 2020-08-07 | Outpatient (CLI) | payer OTHER ==
--- NOTE | 2020-08-07 16:03 | REPVR ---
PROCEDURE INFORMATION: Exam: US Duplex Right Upper Extremity Veins, Limited Exam date and time: 08/07/2020 3:44 PM Age: 50 years old Clinical indication: Pain; Arm, upper; Right; Additional info: Superficial venous thrombosis of right arm TECHNIQUE: Imaging protocol: Real-time Duplex ultrasound of the Right Upper Extremity with 2-D hancock scale, color Doppler flow and spectral waveform analysis with image documentation. Limited exam focused on the right upper extremity veins. COMPARISON: No relevant prior studies available. FINDINGS: Right deep veins: Unremarkable. Axillary vein patent throughout without thrombus. Normal Doppler waveforms. Normal compressibility and/or augmentation response. Visualized internal jugular and subclavian veins patent. Right superficial veins: Occlusion of the distal basilic vein. Visualized cephalic vein patent without thrombus. Soft tissues: Unremarkable. IMPRESSION: 1. No sonographic evidence of deep vein thrombosis. 2. Occlusion of the distal basilic vein. Electronically signed by: Ean Tate On 08/07/2020 16:03:18 PM
== END ==
LOC: M RAD 15:17
PROVIDERS: ATTEND Physician Assistant Medical
DX: I82.611 Acute embolism and thrombosis of superficial veins of right upper extremity (principal)

== ENCOUNTER → 2020-08-16 | Outpatient (CLI) | payer OTHER ==
[~2020-08-16] MED LIST changes: +GASTROGRAFIN SOLUTION 30ML (Q9963) As Ordered ONE; +ISOVUE-370 76% 100ML VIAL As Ordered ONE
--- NOTE | 2020-08-21 15:25 | REP ---
CT ABDOMEN AND PELVIS WITH INTRAVENOUS (IV) AND ORAL CONTRAST HISTORY: Diarrhea. Rule out carcinoid tumor. Chromogranin A positive. CT CONTRAST DOSE: 100 mL of intravenous [id number]. CT FINDINGS: Preliminary digital stucco applicator radiograph is unremarkable. Normal bowel gas pattern. The lung bases are essentially clear. No pleural effusion is seen. The liver and spleen are normal in size and homogeneous in texture. No focal liver lesion. Normal adrenal glands are seen bilaterally. No abnormality is noted in the gallbladder or the pancreas. No retroperitoneal mass or adenopathy. Normal appendix is seen retrocecal. No mesenteric mass or adenopathy is seen. There are dystrophic calcifications of the prostate. Seminal vesicles and urinary bladder are unremarkable. IMPRESSION: No evidence of mass or adenopathy. Normal appendix. Dystrophic calcifications of the prostate. MTDD
== END ==
LOC: M RAD 13:46
PROVIDERS: ATTEND Physician Assistant Medical
DX: N42.89 Other specified disorders of prostate (principal); R19.7 Diarrhea, unspecified; Z79.899 Other long term (current) drug therapy
CPT/HCPCS: 74177; Q9963; Q9967

== ENCOUNTER → 2020-08-27 | Outpatient (REF) | payer OTHER ==
[~2020-08-27] MED LIST changes: -GASTROGRAFIN SOLUTION 30ML (Q9963) As Ordered ONE; -ISOVUE-370 76% 100ML VIAL As Ordered ONE
[2020-08-27 16:04] LABS: ALBUMIN 3.6 GM/DL (3.2-5.2); ALT/SGPT 16 U/L (12-78); BILIRUBIN,TOTAL 0.3 MG/DL (0.2-1.0); BLOOD UREA NITROGEN 12 MG/DL (7-18); CALCIUM LEVEL 9.1 MG/DL (8.5-10.1); CARBON DIOXIDE LEVEL 26 MEQ/L (21-32); CHLORIDE LEVEL 106 MEQ/L (98-107); CHOLESTEROL LEVEL 271 MG/DL (<200); CHOLESTEROL RISK RATIO 9.678 (<5); CPK CREATINE PHOSPHOKINASE 50 U/L (39-308); CREATININE FOR GFR 1.38 MG/DL (0.70-1.30); GLOMERULAR FILTRATION RATE 57.6 (>56); GLUCOSE, FASTING 95 MG/DL (70-100); HDL CHOLESTEROL 28 MG/DL (>40); NON-HDL-C 243 MG/DL; POTASSIUM SERUM 4.2 MEQ/L (3.5-5.1); SODIUM LEVEL 138 MEQ/L (136-145); TOTAL PROTEIN 7.3 GM/DL (6.4-8.2); TRIGLYCERIDES LEVEL 508 MG/DL (<150)
[2020-08-27 16:12] LABS: PTH INTACT 28.6 PG/ML (18.5-88.0)
== END ==
LOC: M PLALAB 12:44
PROVIDERS: ATTEND Physician Assistant Medical
DX: E78.5 Hyperlipidemia, unspecified (principal); E55.9 Vitamin D deficiency, unspecified

== ENCOUNTER → 2020-09-30 | Outpatient (CLI) | payer OTHER ==
--- NOTE | 2020-10-02 15:32 | REP ---
INDICATION: CARCINOID SYNDROME. COMPARISON: CT 08/16/2020. TECHNIQUE/RADIOTRACER AND DOSE: Following the intravenous administration of 6.1 mCi indium 111 pentetreotide, whole-body images are obtained in various projections at 4 hours, 24 hours and 48 hours post injection. SPECT images are obtained in the axial, coronal and sagittal planes. FINDINGS: There is normal bio distribution of radiotracer in the liver and spleen. Radiotracer uptake is seen in the kidneys and bladder, as expected. On the 24 hour and 48 hour images there is mild scattered activity in the colon. There is no abnormal focal uptake identified in the body. There is no scintigraphic evidence of tumor uptake. IMPRESSION: Negative indium 111 pentetreotide scan. <Electronically signed by Dequan Dia > 10/02/20 1525
== END ==
LOC: M RAD 08:29
PROVIDERS: ATTEND Physician Assistant Medical
DX: E34.0 Carcinoid syndrome (principal)
CPT/HCPCS: 78804; A9572

== ENCOUNTER → 2020-12-16 | Outpatient (REF) | payer OTHER ==
[~2020-12-16] MED LIST changes: -DICY20TA PO; +DICY20TA3 PO; -LISI-542 PO; +LISI-898 PO; -MAG400TA PO; +MAGN400T35 PO; +METH-1164 PO; -METH1TAB40 PO
[2020-12-16 16:58] LABS: TOTAL 25(OH) VITAMIN D 22.6 NG/ML (30.0-100.0)
[2020-12-16 16:59] LABS: PTH INTACT 26.6 PG/ML (18.5-88.0)
== END ==
LOC: M PLALAB 13:56
PROVIDERS: ATTEND Physician Assistant Medical
DX: E34.0 Carcinoid syndrome (principal); Z12.5 Encounter for screening for malignant neoplasm of prostate; E55.9 Vitamin D deficiency, unspecified

== ENCOUNTER → 2021-01-13 | Outpatient (REF) | payer OTHER | LOC: M SFHCPLAZ 01-12 16:56 | PROVIDERS: ATTEND Physician Assistant Medical | DX: R19.7 Diarrhea, unspecified (principal) ==

== ENCOUNTER → 2021-03-24 | Outpatient (REF) | payer OTHER ==
[~2021-03-24] MED LIST changes: +GABA-283 PO; -GABA-845 PO
[2021-03-24 18:14] LABS: ALBUMIN 3.7 GM/DL (3.2-5.2); ALT/SGPT 19 U/L (12-78); BILIRUBIN,TOTAL 0.3 MG/DL (0.2-1.0); BLOOD UREA NITROGEN 6 MG/DL (7-18); CALCIUM LEVEL 8.4 MG/DL (8.5-10.1); CARBON DIOXIDE LEVEL 24 MEQ/L (21-32); CHLORIDE LEVEL 106 MEQ/L (98-107); CHOLESTEROL LEVEL 246 MG/DL (<200); CHOLESTEROL RISK RATIO 8.785 (<5); CREATININE FOR GFR 1.11 MG/DL (0.70-1.30); GLOMERULAR FILTRATION RATE > 60.0 (>56); GLUCOSE, FASTING 93 MG/DL (70-100); HDL CHOLESTEROL 28 MG/DL (>40); NON-HDL-C 218 MG/DL; POTASSIUM SERUM 4.3 MEQ/L (3.5-5.1); SODIUM LEVEL 137 MEQ/L (136-145); TOTAL PROTEIN 7.1 GM/DL (6.4-8.2); TRIGLYCERIDES LEVEL 597 MG/DL (<150)
[2021-03-24 18:18] LABS: PTH INTACT 24.7 PG/ML (18.5-88.0); TOTAL 25(OH) VITAMIN D 17.4 NG/ML (30.0-100.0)
== END ==
LOC: M SFHCPLAZ 15:33
PROVIDERS: ATTEND Physician Assistant Medical
DX: D3A.8 Other benign neuroendocrine tumors (principal); E78.5 Hyperlipidemia, unspecified; E55.9 Vitamin D deficiency, unspecified; Z12.5 Encounter for screening for malignant neoplasm of prostate

== ENCOUNTER → 2021-06-19 | Outpatient (CLI) | payer OTHER ==
[~2021-06-19] MED LIST changes: +FAMO10TA50 PO; -FAMO1TAB25 PO; -OLAN10TA2 PO; +OLAN1TAB20 PO; +OMEP40CA4 PO; -OMEP40CA97 PO
[2021-06-19 15:43] LABS: ALBUMIN 3.5 GM/DL (3.2-5.2); BLOOD UREA NITROGEN 10 MG/DL (7-18); CALCIUM LEVEL 8.1 MG/DL (8.5-10.1); CARBON DIOXIDE LEVEL 25 MEQ/L (21-32); CHLORIDE LEVEL 106 MEQ/L (98-107); CREATININE FOR GFR 1.15 MG/DL (0.70-1.30); GLOMERULAR FILTRATION RATE > 60.0 (>56); GLUCOSE, FASTING 83 MG/DL (70-100); PHOSPHORUS LEVEL 2.8 MG/DL (2.5-4.9); SODIUM LEVEL 135 MEQ/L (136-145)
== END ==
LOC: M PLALAB 11:54
PROVIDERS: ATTEND Physician Assistant Medical
DX: E55.9 Vitamin D deficiency, unspecified (principal)

== ENCOUNTER → 2021-07-11 | Outpatient (CLI) | payer OTHER ==
[~2021-07-11] MED LIST changes: +ARNU1INH INH; +CALC1CAP31 PO; +D31000TA2 PO; +ECOT81TA5 PO; +ERGO500029; +FAMO40TA3; +LEXA1TAB2 PO; +LISI2.5T9 PO; +MELO15TA28 PO; +OLAN20TA14 PO; +PANT40TA29 PO; +PROP10TA56 PO; +SUMA100T2
== END ==
LOC: M LABSMTC 10:25
PROVIDERS: ATTEND Anesthesiology
DX: Z01.812 Encounter for preprocedural laboratory examination (principal)

== ENCOUNTER 2021-07-16 08:12 | Day surgery (SDC) | payer OTHER ==
[~2021-07-16] VITALS: Ht 177.8 cm; Wt 88.5 kg
[~2021-07-16 08:12] MED LIST changes: +LIDOCAINE 2% 100MG/5ML SDV (FOR ANES.) As Ordered ONE; +NS 1,000 ML IV ONE; +propofoL 200 MG/20 ML VIAL As Ordered ONE
--- NOTE | 2021-07-16 10:22 | ROOR ---
Patient Name: Micheal Hooks Procedure Date: 07/16/2021 9:30 AM Date of : 1970 Age: 51 Room: [facility] Gender: Male Note Status: Finalized Procedure: Upper GI endoscopy Indications: Heartburn, Follow-up of esophageal reflux Providers: Cristobal Castro MD Referring MD: Nesha DONG Requesting Provider: Medicines: Monitored Anesthesia Care Complications: No immediate complications. Procedure: Pre-Anesthesia Assessment: - Prior to the procedure, a History and Physical was performed, and patient medications and allergies were reviewed. The patient is competent. The risks and benefits of the procedure and the sedation options and risks were discussed with the patient. All questions were answered and informed consent was obtained. Patient identification and proposed procedure were verified by the physician, the nurse and the anesthesiologist in the endoscopy suite. Mental Status Examination: alert and oriented. Airway Examination: normal oropharyngeal airway and neck mobility. Respiratory Examination: clear to auscultation. CV Examination: normal. Prophylactic Antibiotics: The patient does not require prophylactic antibiotics. Prior Anticoagulants: The patient has taken no previous anticoagulant or antiplatelet agents except for aspirin. ASA Grade Assessment: III - A patient with severe systemic disease. After reviewing the risks and benefits, the patient was deemed in satisfactory condition to undergo the procedure. The anesthesia plan was to use monitored anesthesia care (MAC). Immediately prior to administration of medications, the patient was re-assessed for adequacy to receive sedatives. The heart rate, respiratory rate, oxygen saturations, blood pressure, adequacy of pulmonary ventilation, and response to care were monitored throughout the procedure. The physical status of the patient was re-assessed after the procedure. The Endoscope was introduced through the mouth, and advanced to the second part of duodenum. The upper GI endoscopy was accomplished without difficulty. The patient tolerated the procedure well. Findings: The examined esophagus was normal. The Z-line was regular and was found 37 cm from the incisors. This was biopsied with a cold forceps for r/o avelar's esophagus. Estimated blood loss was minimal. Diffuse nodular mucosa was found in the gastric body. Biopsies were taken with a cold forceps for histology. Estimated blood loss was minimal. The gastric antrum was normal. The first portion of the duodenum and second portion of the duodenum were normal. Impression: - Normal esophagus. - Z-line regular, 37 cm from the incisors. Biopsied. - Nodular mucosa in the gastric body. Biopsied. - Normal antrum. - Normal first portion of the duodenum and second portion of the duodenum. Recommendation: - Discharge patient to home (ambulatory). - Continue present medications. - Await pathology results. Procedure Code(s): --- Professional --- 59439, Esophagogastroduodenoscopy, flexible, transoral; with biopsy, single or multiple Diagnosis Code(s): --- Professional --- K31.89, Other diseases of stomach and duodenum R12, Heartburn K21.9, Gastro-esophageal reflux disease without esophagitis CPT copyright 2019 [employer]. All rights reserved. The codes documented in this report are preliminary and upon delivery crew member review may be revised to meet current compliance requirements. Cristobal Castro MD Cristobal Castro MD 07/16/2021 10:21:41 AM Electronically signed by Cristobal Castro MD Number of Addenda: 0 Note Initiated On: 07/16/2021 9:30 AM Estimated Blood Loss: Estimated blood loss was minimal.
--- NOTE | 2021-07-16 10:25 | ROOR ---
Patient Name: Micheal Hooks Procedure Date: 07/16/2021 9:30 AM Date of : 1970 Age: 51 Room: [facility] Gender: Male Note Status: Finalized Procedure: Colonoscopy Indications: High risk colon cancer surveillance: Personal history of colonic polyps Providers: Cristobal Castro MD Referring MD: Nesha DONG Requesting Provider: Medicines: Monitored Anesthesia Care Complications: No immediate complications. Procedure: Pre-Anesthesia Assessment: - Prior to the procedure, a History and Physical was performed, and patient medications and allergies were reviewed. The patient is competent. The risks and benefits of the procedure and the sedation options and risks were discussed with the patient. All questions were answered and informed consent was obtained. Patient identification and proposed procedure were verified by the physician, the nurse and the anesthesiologist in the endoscopy suite. Mental Status Examination: alert and oriented. Airway Examination: normal oropharyngeal airway and neck mobility. Respiratory Examination: clear to auscultation. CV Examination: normal. Prophylactic Antibiotics: The patient does not require prophylactic antibiotics. Prior Anticoagulants: The patient has taken no previous anticoagulant or antiplatelet agents except for aspirin. ASA Grade Assessment: III - A patient with severe systemic disease. After reviewing the risks and benefits, the patient was deemed in satisfactory condition to undergo the procedure. The anesthesia plan was to use monitored anesthesia care (MAC). Immediately prior to administration of medications, the patient was re-assessed for adequacy to receive sedatives. The heart rate, respiratory rate, oxygen saturations, blood pressure, adequacy of pulmonary ventilation, and response to care were monitored throughout the procedure. The physical status of the patient was re-assessed after the procedure. The Colonoscope was introduced through the anus and advanced to the cecum, identified by appendiceal orifice and ileocecal valve. The colonoscopy was technically difficult and complex due to a tortuous colon. The patient tolerated the procedure well. The quality of the bowel preparation was adequate to identify polyps. Findings: Skin tags were found on perianal exam. A 10 mm polyp was found in the descending colon. The polyp was semi-pedunculated. The polyp was removed with a hot snare. Resection and retrieval were complete. Estimated blood loss was minimal. A 2 mm polyp was found in the sigmoid colon. The polyp was flat. The polyp was removed with a jumbo cold forceps. Resection and retrieval were complete. Estimated blood loss was minimal. The retroflexed view of the distal rectum and anal verge was normal and showed no anal or rectal abnormalities. Impression: - Perianal skin tags found on perianal exam. - One 10 mm polyp in the descending colon, removed with a hot snare. Resected and retrieved. - One 2 mm polyp in the sigmoid colon, removed with a jumbo cold forceps. Resected and retrieved. - The distal rectum and anal verge are normal on retroflexion view. Recommendation: - Discharge patient to home (ambulatory). - Repeat colonoscopy in 3 years for surveillance. Procedure Code(s): --- Professional --- 01033, Colonoscopy, flexible; with removal of tumor(s), polyp(s), or other lesion(s) by snare technique [id number], 59, Colonoscopy, flexible; with biopsy, single or multiple Diagnosis Code(s): --- Professional --- Z86.010, Personal history of colonic polyps K63.5, Polyp of colon K64.4, Residual hemorrhoidal skin tags CPT copyright 2019 [employer]. All rights reserved. The codes documented in this report are preliminary and upon photogrammetrist review may be revised to meet current compliance requirements. Cristobal Castro MD Cristobal Castro MD 07/16/2021 10:25:33 AM Electronically signed by Cristobal Castro MD Number of Addenda: 0 Note Initiated On: 07/16/2021 9:30 AM Estimated Blood Loss: Estimated blood loss was minimal.
[2021-07-16 10:46] VITALS: BP 159/94
== END 2021-07-16 10:48 | disposition home or self-care (01) ==
LOC: M OPP 08:12
PROVIDERS: ATTEND Surgery
DX: Z12.11 Encounter for screening for malignant neoplasm of colon (principal); Z86.010 Personal history of colon polyps; K63.5 Polyp of colon; K64.4 Residual hemorrhoidal skin tags; K31.89 Other diseases of stomach and duodenum; K21.9 Gastro-esophageal reflux disease without esophagitis; R12 Heartburn; Z79.82 Long term (current) use of aspirin; Z79.899 Other long term (current) drug therapy; Z88.5 Allergy status to narcotic agent; Z88.6 Allergy status to analgesic agent; F17.210 Nicotine dependence, cigarettes, uncomplicated

== ENCOUNTER → 2021-07-28 | Outpatient (CLI) | payer OTHER ==
[~2021-07-28] MED LIST changes: -LIDOCAINE 2% 100MG/5ML SDV (FOR ANES.) As Ordered ONE; -NS 1,000 ML IV ONE; -propofoL 200 MG/20 ML VIAL As Ordered ONE
[2021-07-28 18:30] LABS: ALBUMIN 3.6 GM/DL (3.2-5.2); ALT/SGPT 40 U/L (12-78); BILIRUBIN,TOTAL 0.2 MG/DL (0.2-1.0); BLOOD UREA NITROGEN 9 MG/DL (7-18); CALCIUM LEVEL 8.7 MG/DL (8.5-10.1); CARBON DIOXIDE LEVEL 26 MEQ/L (21-32); CHLORIDE LEVEL 105 MEQ/L (98-107); CREATININE FOR GFR 1.25 MG/DL (0.70-1.30); GLOMERULAR FILTRATION RATE > 60.0 (>56); GLUCOSE, FASTING 87 MG/DL (70-100); POTASSIUM SERUM 4.1 MEQ/L (3.5-5.1); SODIUM LEVEL 138 MEQ/L (136-145); TOTAL PROTEIN 7.4 GM/DL (6.4-8.2)
[2021-07-28 18:36] LABS: PTH INTACT 38.2 PG/ML (18.5-88.0)
[2021-07-30 13:09] LABS: TISSUE TRANSGLUTAMINASE IgA <2 U/mL (0-3); TISSUE TRANSGLUTAMINASE IgG 6 U/mL (0-5)
== END ==
LOC: M PLALAB 15:21
PROVIDERS: ATTEND Physician Assistant Medical
DX: R19.7 Diarrhea, unspecified (principal); E55.9 Vitamin D deficiency, unspecified; Z12.5 Encounter for screening for malignant neoplasm of prostate

== ENCOUNTER → 2021-08-14 | Outpatient (REF) | payer OTHER | LOC: M SFHCPLAZ 14:11 | PROVIDERS: ATTEND Physician Assistant Medical | DX: R19.7 Diarrhea, unspecified (principal) ==

== ENCOUNTER → 2022-03-06 | Outpatient (CLI) | payer OTHER ==
[~2022-03-06] MED LIST changes: -D31000TA2 PO; -LISI-898 PO; +LISI5TAB11 PO; +VITA100093 PO
[2022-03-06 17:12] LABS: HEMATOCRIT 46.9 % (42.0-52.0); HEMOGLOBIN 15.1 g/dl (13.5-17.5); MEAN CORPUSCULAR HEMOGLOBIN 29.6 pg (27.0-33.0); MEAN CORPUSCULAR HGB CONC 32.2 g/dl (32.0-36.5); PLATELET COUNT, AUTOMATED 198 10^3/uL (150-450); WHITE BLOOD COUNT 12.5 10^3/uL (4.0-10.0)
[2022-03-06 17:34] LABS: ALBUMIN 3.8 GM/DL (3.2-5.2); ALT/SGPT 32 U/L (12-78); BILIRUBIN,TOTAL 0.4 MG/DL (0.2-1.0); BLOOD UREA NITROGEN 12 MG/DL (7-18); CALCIUM LEVEL 9.1 MG/DL (8.5-10.1); CARBON DIOXIDE LEVEL 29 MEQ/L (21-32); CHLORIDE LEVEL 106 MEQ/L (98-107); CHOLESTEROL LEVEL 194 MG/DL (<200); CHOLESTEROL RISK RATIO 5.878 (<5); CREATININE FOR GFR 1.33 MG/DL (0.70-1.30); GLOMERULAR FILTRATION RATE 59.6 (>56); GLUCOSE, FASTING 77 MG/DL (70-100); HDL CHOLESTEROL 33 MG/DL (>40); NON-HDL-C 161 MG/DL; POTASSIUM SERUM 4.2 MEQ/L (3.5-5.1); SODIUM LEVEL 140 MEQ/L (136-145); TOTAL PROTEIN 7.3 GM/DL (6.4-8.2); TRIGLYCERIDES LEVEL 584 MG/DL (<150)
[2022-03-06 17:43] LABS: PTH INTACT 24.7 PG/ML (18.5-88.0)
[2022-03-06 17:54] LABS: ATYPICAL LYMPH 2 % (0-5); BASOPHILS 2 % (0-1); EOSINOPHILS 2 % (0-3); LYMPHOCYTES 36 % (16-44); MONOCYTES 2 % (0-5); NEUTROPHILS 56 % (28-66); PLATELET ESTIMATE NORMAL (NORMAL)
== END ==
LOC: M PLALAB 15:32
PROVIDERS: ATTEND Physician Assistant Medical
DX: R19.7 Diarrhea, unspecified (principal); E55.9 Vitamin D deficiency, unspecified; K21.9 Gastro-esophageal reflux disease without esophagitis; E78.5 Hyperlipidemia, unspecified

== ENCOUNTER → 2023-03-19 | Outpatient (CLI) | payer OTHER ==
[~2023-03-19] MED LIST changes: +LORA1TAB23 PO; -LORA1TAB4 PO; -ZONI100C17 PO; +ZONI100C67 PO
[2023-03-19 18:37] LABS: PTH INTACT 27.5 PG/ML (18.5-88.0)
[2023-03-19 18:39] LABS: TOTAL 25(OH) VITAMIN D 46.1 NG/ML (20.0-100.0)
== END ==
LOC: M PLALAB 15:19
PROVIDERS: ATTEND Physician Assistant Medical
DX: D3A.8 Other benign neuroendocrine tumors (principal)

== ENCOUNTER → 2023-03-19 | Outpatient (CLI) | payer OTHER ==
[2023-03-19 18:17] LABS: BASO # 0.1 10^3/uL (0.0-0.2); BASO % 0.8 % (0.0-1.0); EOS # 0.3 10^3/uL (0.0-0.5); EOS % 1.8 % (0.0-3.0); HEMATOCRIT 48.3 % (42.0-52.0); HEMOGLOBIN 16.2 g/dl (13.5-17.5); MEAN CORPUSCULAR HEMOGLOBIN 30.6 pg (27.0-33.0); MEAN CORPUSCULAR HGB CONC 33.5 g/dl (32.0-36.5); MEAN CORPUSCULAR VOLUME 91.3 fl (80.0-96.0); MONO # 0.8 10^3/uL (0.0-0.8); MONO % 5.5 % (2.0-8.0); NEUTROPHILS # 8.5 10^3/uL (1.5-8.5); NEUTROPHILS % 57.6 % (36.0-66.0); PLATELET COUNT, AUTOMATED 213 10^3/uL (150-450); RED BLOOD COUNT 5.29 10^6/uL (4.30-6.10); WHITE BLOOD COUNT 14.7 10^3/uL (4.0-10.0)
[2023-03-19 18:40] LABS: ALBUMIN 3.9 G/DL (3.2-5.2); ALKALINE PHOSPHATASE 85 U/L (46-116); ALT/SGPT < 9 U/L (7.0-40); AST/SGOT 13 U/L (<34); BILIRUBIN,TOTAL 0.5 MG/DL (0.3-1.2); BLOOD UREA NITROGEN 12 MG/DL (9-23); CALCIUM LEVEL 9.1 MG/DL (8.5-10.1); CARBON DIOXIDE LEVEL 26 MMOL/L (20-31); CHLORIDE LEVEL 102 MMOL/L (98-107); CREATININE FOR GFR 1.29 MG/DL (0.70-1.30); GLOMERULAR FILTRATION RATE > 60.0 (>56); GLUCOSE, FASTING 83 MG/DL (60-100); POTASSIUM SERUM 4.4 MMOL/L (3.5-5.1); SODIUM LEVEL 136 MMOL/L (136-145); TOTAL PROTEIN 7.1 G/DL (5.7-8.2)
== END ==
LOC: M PLALAB 15:23
PROVIDERS: ATTEND Psychiatry & Neurology Neurology
DX: R51.9 Headache, unspecified (principal); Z51.81 Encounter for therapeutic drug level monitoring; Z79.899 Other long term (current) drug therapy

== ENCOUNTER → 2023-03-19 | Outpatient (REF) | payer OTHER | LOC: M SFHCPLAZ 15:11 | PROVIDERS: ATTEND Physician Assistant Medical | DX: Z53.9 Procedure and treatment not carried out, unspecified reason (principal) ==

== ENCOUNTER → 2023-12-01 | Outpatient (CLI) | payer OTHER ==
[~2023-12-01] MED LIST changes: -GABA-283 PO; +GABA-284 PO
[2023-12-01 18:42] LABS: ALBUMIN 3.7 G/DL (3.2-5.2); ALKALINE PHOSPHATASE 81 U/L (46-116); ALT/SGPT 19 U/L (7.0-40); AST/SGOT 18 U/L (<34); BASO # 0.1 10^3/uL (0.0-0.2); BASO % 0.7 % (0.0-1.0); BILIRUBIN,TOTAL 0.2 MG/DL (0.3-1.2); BLOOD UREA NITROGEN 14 MG/DL (9-23); CALCIUM LEVEL 9.3 MG/DL (8.5-10.1); CARBON DIOXIDE LEVEL 32 MMOL/L (20-31); CHLORIDE LEVEL 104 MMOL/L (98-107); CHOLESTEROL LEVEL 178 MG/DL (<200); CHOLESTEROL RISK RATIO 6.01 (<5); CREATININE FOR GFR 1.15 MG/DL (0.70-1.30); EOS # 0.1 10^3/uL (0.0-0.5); EOS % 1.6 % (0.0-3.0); GLOMERULAR FILTRATION RATE > 60.0 (>56); GLUCOSE, FASTING 89 MG/DL (60-100); HDL CHOLESTEROL 29.6 MG/DL (>40); HEMATOCRIT 46.5 % (42.0-52.0); HEMOGLOBIN 15.2 g/dl (13.5-17.5); LDL CHOLESTEROL 88.4 MG/DL (<100); LYMPH # 3.6 10^3/uL (1.5-5.0); LYMPH % 40.1 % (24.0-44.0); MEAN CORPUSCULAR HEMOGLOBIN 30.3 pg (27.0-33.0); MEAN CORPUSCULAR HGB CONC 32.7 g/dl (32.0-36.5); MEAN CORPUSCULAR VOLUME 92.6 fl (80.0-96.0); MONO # 0.6 10^3/uL (0.0-0.8); MONO % 6.6 % (2.0-8.0); NEUTROPHILS # 4.5 10^3/uL (1.5-8.5); NEUTROPHILS % 50.6 % (36.0-66.0); NON-HDL-C 148.4 MG/DL; PLATELET COUNT, AUTOMATED 188 10^3/uL (150-450); POTASSIUM SERUM 4.6 MMOL/L (3.5-5.1); PTH INTACT 55.6 PG/ML (18.5-88.0); RED BLOOD COUNT 5.02 10^6/uL (4.30-6.10); SODIUM LEVEL 135 MMOL/L (136-145); TOTAL PROTEIN 7.3 G/DL (5.7-8.2); TRIGLYCERIDES LEVEL 300 MG/DL (<150)
== END ==
LOC: M PLALAB 14:38
PROVIDERS: ATTEND Physician Assistant Medical
DX: E78.5 Hyperlipidemia, unspecified (principal); E55.9 Vitamin D deficiency, unspecified; I10 Essential (primary) hypertension; K21.9 Gastro-esophageal reflux disease without esophagitis; D3A.8 Other benign neuroendocrine tumors

== ENCOUNTER → 2024-05-17 | Outpatient (CLI) | payer OTHER ==
[~2024-05-17] MED LIST changes: -OLAN20TA14 PO; +OLAN20TA53 PO
[2024-05-17 17:26] LABS: HEMATOCRIT 43.7 % (42.0-52.0); HEMOGLOBIN 14.3 g/dl (13.5-17.5); MEAN CORPUSCULAR HEMOGLOBIN 30.6 pg (27.0-33.0); MEAN CORPUSCULAR HGB CONC 32.7 g/dl (32.0-36.5); MEAN CORPUSCULAR VOLUME 93.6 fl (80.0-96.0); PLATELET COUNT, AUTOMATED 206 10^3/uL (150-450); RED BLOOD COUNT 4.67 10^6/uL (4.30-6.10); WHITE BLOOD COUNT 13.4 10^3/uL (4.0-10.0)
[2024-05-17 17:57] LABS: PSA SCREENING 0.49 NG/ML (< 4.00)
[2024-05-17 18:01] LABS: ALBUMIN 3.8 G/DL (3.2-5.2); ALKALINE PHOSPHATASE 80 U/L (46-116); ALT/SGPT 13 U/L (7.0-40); AST/SGOT < 8 U/L (<34); BILIRUBIN,TOTAL 0.2 MG/DL (0.3-1.2); BLOOD UREA NITROGEN 12 MG/DL (9-23); CALCIUM LEVEL 9.6 MG/DL (8.5-10.1); CARBON DIOXIDE LEVEL 28 MMOL/L (20-31); CHLORIDE LEVEL 108 MMOL/L (98-107); CHOLESTEROL LEVEL 161 MG/DL (<200); CHOLESTEROL RISK RATIO 4.84 (<5); CREATININE FOR GFR 1.36 MG/DL (0.70-1.30); GLOMERULAR FILTRATION RATE 57.7 (>56); GLUCOSE, FASTING 93 MG/DL (60-100); HDL CHOLESTEROL 33.2 MG/DL (>40); LDL CHOLESTEROL 96.4 MG/DL (<100); NON-HDL-C 127.8 MG/DL; POTASSIUM SERUM 4.8 MMOL/L (3.5-5.1); SODIUM LEVEL 138 MMOL/L (136-145); TOTAL 25(OH) VITAMIN D 32.8 NG/ML (20.0-100.0); TOTAL PROTEIN 6.9 G/DL (5.7-8.2); TRIGLYCERIDES LEVEL 157 MG/DL (<150)
[2024-05-17 19:06] LABS: ATYPICAL LYMPH 16 % (0-5); BASOPHILS 2 % (0-1); EOSINOPHILS 3 % (0-3); LYMPHOCYTES 26 % (16-44); MONOCYTES 1 % (0-5); NEUTROPHILS 51 % (28-66); PLATELET ESTIMATE NORMAL (NORMAL)
== END ==
LOC: M PLALAB 14:21
PROVIDERS: ATTEND Physician Assistant Medical
DX: I10 Essential (primary) hypertension (principal); E78.5 Hyperlipidemia, unspecified; E21.0 Primary hyperparathyroidism; E55.9 Vitamin D deficiency, unspecified; D3A.019 Benign carcinoid tumor of the small intestine, unspecified portion; Z12.5 Encounter for screening for malignant neoplasm of prostate

== ENCOUNTER → 2024-11-14 | Outpatient (CLI) | payer OTHER ==
[2024-11-14 16:53] LABS: BASO # 0.1 10^3/uL (0.0-0.2); BASO % 0.8 % (0.0-1.0); EOS # 0.4 10^3/uL (0.0-0.5); EOS % 2.2 % (0.0-3.0); HEMATOCRIT 46.6 % (42.0-52.0); HEMOGLOBIN 15.6 g/dl (13.5-17.5); LYMPH # 4.9 10^3/uL (1.5-5.0); LYMPH % 31.3 % (24.0-44.0); MEAN CORPUSCULAR HEMOGLOBIN 30.8 pg (27.0-33.0); MEAN CORPUSCULAR HGB CONC 33.5 g/dl (32.0-36.5); MEAN CORPUSCULAR VOLUME 91.9 fl (80.0-96.0); MONO # 1.1 10^3/uL (0.0-0.8); MONO % 6.7 % (2.0-8.0); NEUTROPHILS # 9.1 10^3/uL (1.5-8.5); NEUTROPHILS % 58.3 % (36.0-66.0); PLATELET COUNT, AUTOMATED 183 10^3/uL (150-450); RED BLOOD COUNT 5.07 10^6/uL (4.30-6.10); WHITE BLOOD COUNT 15.7 10^3/uL (4.0-10.0)
[2024-11-14 17:16] LABS: ALBUMIN 3.8 G/DL (3.2-5.2); ALKALINE PHOSPHATASE 98 U/L (40-129); ALT/SGPT 19 U/L (7.0-40); AST/SGOT 16 U/L (<34); BILIRUBIN,TOTAL 0.3 MG/DL (0.3-1.2); BLOOD UREA NITROGEN 19 MG/DL (9-23); CALCIUM LEVEL 9.5 MG/DL (8.5-10.1); CARBON DIOXIDE LEVEL 28 MMOL/L (20-31); CHLORIDE LEVEL 100 MMOL/L (98-107); CREATININE FOR GFR 1.28 MG/DL (0.70-1.30); GLOMERULAR FILTRATION RATE > 60.0 (>56); GLUCOSE, FASTING 75 MG/DL (60-100); POTASSIUM SERUM 4.5 MMOL/L (3.5-5.1); SODIUM LEVEL 136 MMOL/L (136-145); TOTAL PROTEIN 7.6 G/DL (5.7-8.2)
== END ==
LOC: M PLALAB 14:07
PROVIDERS: ATTEND Physician Assistant Medical
DX: I10 Essential (primary) hypertension (principal)

== ENCOUNTER → 2024-11-29 | Outpatient (CLI) | payer OTHER | LOC: M CARPUL 13:01 | PROVIDERS: ATTEND Physician Assistant Medical | DX: J44.9 Chronic obstructive pulmonary disease, unspecified (principal) ==

== ENCOUNTER → 2024-12-22 | Outpatient (CLI) | payer OTHER ==
[~2024-12-22] MED LIST changes: +ISOVUE-370 76% 100ML VIAL As Ordered ONE
== END ==
LOC: M RAD 15:25
PROVIDERS: ATTEND Physician Assistant Medical
DX: D3A.019 Benign carcinoid tumor of the small intestine, unspecified portion (principal); Z80.0 Family history of malignant neoplasm of digestive organs
CPT/HCPCS: 74160; Q9967

== ENCOUNTER → 2025-02-07 | Day surgery (SDC) | payer OTHER ==
[~2025-02-07] VITALS: Ht 177.8 cm; Wt 79.2 kg
[~2025-02-07] MED LIST changes: -ERGO500029; +ERGO500029 PO; -FAMO40TA3; +FAMO40TA3 PO; -ISOVUE-370 76% 100ML VIAL As Ordered ONE; +LIDOCAINE 2% 100MG/5ML SDV (FOR ANES.) As Ordered ONE; -SUMA100T2; +SUMA100T2 PO; +fentaNYL 100 MCG/2 ML INJECTION As Ordered ONE; +propofoL 200 MG/20 ML VIAL As Ordered ONE
[2025-02-07] MEDS: IPRATROPIUM 0.5MG/ALBUTEROL 2.5MG INH SOL UD 3ML (DUONEB) NEB STA (11:19)
[2025-02-07 13:07] VITALS: TEMP 96.6
[2025-02-07 13:31] VITALS: BP 158/97; O2SAT 98
== END | disposition home or self-care (01) ==
LOC: M OPP 10:35
PROVIDERS: ATTEND Surgery
DX: D12.6 Benign neoplasm of colon, unspecified (principal); Z80.0 Family history of malignant neoplasm of digestive organs; Z86.0100 Personal history of colon polyps, unspecified; K21.00 Gastro-esophageal reflux disease with esophagitis, without bleeding; K44.9 Diaphragmatic hernia without obstruction or gangrene; K29.50 Unspecified chronic gastritis without bleeding; R12 Heartburn; Z86.73 Personal history of transient ischemic attack (TIA), and cerebral infarction without residual deficits; Z88.5 Allergy status to narcotic agent; Z88.6 Allergy status to analgesic agent; Z88.8 Allergy status to other drugs, medicaments and biological substances; Z79.51 Long term (current) use of inhaled steroids; Z79.82 Long term (current) use of aspirin; Z79.899 Other long term (current) drug therapy; R56.9 Unspecified convulsions; J44.9 Chronic obstructive pulmonary disease, unspecified; F17.210 Nicotine dependence, cigarettes, uncomplicated
CPT/HCPCS: 43239; 45385; 88305; J3010

== ENCOUNTER → 2025-05-29 | Outpatient (CLI) | payer OTHER ==
[~2025-05-29] MED LIST changes: -LIDOCAINE 2% 100MG/5ML SDV (FOR ANES.) As Ordered ONE; -PRAV40TA2 PO; +PRAV40TA85 PO; -fentaNYL 100 MCG/2 ML INJECTION As Ordered ONE; -propofoL 200 MG/20 ML VIAL As Ordered ONE
== END ==
LOC: M RAD 10:00
PROVIDERS: ATTEND Physician Assistant Medical
DX: Z15.09 Genetic susceptibility to other malignant neoplasm (principal)

== ENCOUNTER 2025-09-18 07:04 | Day surgery (SDC) | payer OTHER ==
[~2025-09-18] VITALS: Ht 177.8 cm; Wt 84.1 kg
[~2025-09-18 07:04] MED LIST changes: +FLUT12AE2; +NICO21DI37; +OLAN2.5T53 PO; +PROP20TA72 PO; +ROSU10TA90 PO; +SUCR1TAB56 PO; +TRAZ-257 PO; +VONO20TA PO
[2025-09-18 08:49] VITALS: TEMP 97.6
[2025-09-18 09:07] VITALS: BP 158/88; O2SAT 97
== END 2025-09-18 09:12 | disposition home or self-care (01) ==
LOC: M OPP 07:04
PROVIDERS: ATTEND Surgery
DX: D12.6 Benign neoplasm of colon, unspecified (principal); K57.30 Diverticulosis of large intestine without perforation or abscess without bleeding; Z85.038 Personal history of other malignant neoplasm of large intestine; Z15.09 Genetic susceptibility to other malignant neoplasm; Z86.0101 Personal history of adenomatous and serrated colon polyps; Z86.73 Personal history of transient ischemic attack (TIA), and cerebral infarction without residual deficits; Z88.5 Allergy status to narcotic agent; Z88.6 Allergy status to analgesic agent; Z88.8 Allergy status to other drugs, medicaments and biological substances; Z79.51 Long term (current) use of inhaled steroids; Z79.82 Long term (current) use of aspirin; Z79.899 Other long term (current) drug therapy; R56.9 Unspecified convulsions; J44.9 Chronic obstructive pulmonary disease, unspecified